=== PATIENT | female | born 1935 | race Caucasian/White ===

== ENCOUNTER 2019-05-06 19:26 | Observation (INO) ==
--- NOTE | 2019-05-06 19:53 | Diag Imaging Result Doc PS360 ---
EXAM: CT HEAD/C-SPINE W/O CONTRAST INDICATION: fall TECHNIQUE: This exam was performed using automated exposure control, adjustment of mA or kV according to patient size, and/or use of iterative reconstruction technique. COMPARISON: 10/01/2018 FINDINGS: Head: There is no definite acute infarct given the limited sensitivity of CT versus MRI. There is no discrete intracranial mass, mass effect, or intracranial hemorrhage. The surrounding soft tissues are essentially unremarkable. The calvaria is intact. C-spine: There is multilevel fairly advanced degenerative disc disease and facet arthropathy, stable. Otherwise, there is no discrete fracture, acute subluxation, or intrinsic osseous lesion. The surrounding soft tissues are essentially unremarkable. IMPRESSION: 1.No evidence of acute intracranial pathology. 2.Multilevel degenerative arthropathy that is stable. No evidence of fracture or other definite acute C-spine injury. Electronically signed by Fidencio Dhillon 05/06/2019 7:51 PM
--- NOTE | 2019-05-06 19:59 | PROVIDER DOCUMENTATION ---
HPI-Head Injury - General Chief Complaint: Fall Stated Complaint: FALL Time Seen by Provider: 05/06/19 19:28 Source: patient Allergies/Adverse Reactions: Patient Allergies Allergy/AdvReac Type Severity Reaction Status Date / Time No Known Allergies Allergy Verified 05/06/19 19:31 Home Medications: Home Medication List Medication Instructions Recorded Confirmed Last Taken Type Cetirizine HCl [Zyrtec] 10 mg PO DAILY 05/06/19 05/06/19 Unknown History - History of Present Illness-Head Injury Nature of Presenting Problem: 84 yof with PMH SAH presents with c/o getting dizzy after bending over out of a chair and falling backwards and hitting her head. She reports she had LOC after the fall. Dizzy before the fall. She denies hx of vertigo. Denies current dizziness Head Injury Location: reports: occipital Other injuries associated with incident:: reports: head Quality of Pain: reports: aching Severity: reports: mild Onset/Duration: reports: just prior to arrival Timing: reports: still present Method of Injury: reports: fell Any recent trauma/injury?: reports: minor Loss of Consciousness: brief (seconds) Modifying Factors: improves with: nothing Injury Associated Symptoms: reports: dizziness Locality of Occurance: Work Similar Symptoms Previously?: No Recently seen or treated by another doctor?: No Review of Systems - Adult - REVIEW OF SYSTEMS - ADULT Constitutional: reports: no symptoms reported. denies: see HPI, chills, fever, fatique, night sweats, weight gain, weight loss, other Eyes: reports: no symptoms reported. denies: see HPI, discharge, dry eyes, decreased vision, blurred vision, double vision, eye pain, redness, other Ears, Nose, Mouth & Throat: reports: no symptoms reported. denies: see HPI, ear discharge, ear pain, hearing loss, tinnitus, epistaxis, sinus problem, nose pain, loose teeth, mouth/dental pain, mouth swelling, hoarseness, throat pain, throat swelling, other Cardiovascular: reports: no symptoms reported. denies: see HPI, chest pain, edema, heart murmur, irregular heart rate, orthopnea, palpitations, poor circulation, PND, syncope, other Respiratory: reports: no symptoms reported. denies: see HPI, chronic cough, cough, dyspnea on exertion, excessive sputum production, hemoptysis, pleurisy, s hortness of breath, wheezing, other Gastrointestinal: reports: no symptoms reported. denies: see HPI, abdominal pain, hematemesis, constipation, diarrhea, difficulty swallowing, frequent heartburn, nausea, poor appetite, rectal bleeding, vomiting, other Genitourinary: reports: no symptoms reported. denies: see HPI, dysuria, discharge, frequency, flank pain, frequent UTI's, hematuria, hesitency, incontinence, urinary retention, urgency, other Musculoskeletal: reports: no symptoms reported. denies: see HPI, bone pain, back pain, frequent leg cramps, joint pain, joint swelling, muscle aches, muscle weakness, neck pain, other Integumentary: reports: no symptoms reported. denies: see HPI, hives, hair loss, itching, mole changes, nail changes, rash, skin sores/ulcer, skin thickening, other Neurological: reports: see HPI, dizziness/vertigo (prior to fall), headache/migraines. denies: loss of balance, numbness, slurred speech, syncope Psychiatric: reports: no symptoms reported. denies: see HPI, anxiety, anti- depressant use, alcohol/drug dependence, depression, emotional problems, insom андрей, panic attacks, suicidal thoughts, other Endocrine: reports: no symptoms reported. denies: see HPI, change in skin pigment, excessive sweating, goiter, cold intolerance, heat intolerance, increased hunger, increased thirst, polyuria, other Hematologic/Lymphatic: reports: no symptoms reported. denies: see HPI, blood clots, easy bruising, low blood count, lymphedema, prolonged bleeding, swollen lymph nodes, transfusions, other Allergic/Immunologic: reports: no symptoms reported. denies: see HPI, allergic reactions, allergic rhinitis, asthma, eczema, food allergy, frequent infections, hay fever, hives, positive PPD, urticaria, other Past History - Adult - PAST MEDICAL HISTORY-ADULT Review of Records: reports: Nursing Assessment Review, Social history reviewed & non-contributory. Major Childhood Illnesses: reports: denies history Cardiovascular: reports: denies history Respiratory: reports: denies history Gastrointestinal: reports: GERD Obstetrical/Gynecological: reports: denies history Genitourinary: reports: denies history Musculoskeletal: reports: denies history Neurological: reports: denies history Endocrine/Immune: reports: denies history Other Conditions: reports: denies history - PRIOR SURGERIES/PROCEDURES Surgical/Procedure History: reports: none - IMMUNIZATION STATUS Childhood Immunizations: See Nurse Assessment Flu Vaccine: See Nurse Assessment - FAMILY HISTORY Family History: reviewed, not pertinent Physical Exam- Neurological - Physical Exam-Neuro Initial Vital Signs Reviewed: Yes General Appearance: appears well, alert, no apparent distress Eye Exam: bilateral eye: normal inspection, PERRL, EOMI HENMT: moist mucous membranes, normal ENT inspection Head Injury: other (hematoma R occipital) Neck: non-tender, full range of motion, supple Respiratory: chest non-tender, lungs clear, normal breath sounds, no pleuratic chest pain, no respiratory distress, no accessory muscle use Cardiovascular: normal peripheral pulses, regular rate, rhythm, no edema, no gallop, no JVD, no murmur Abdominal Exam: normal bowel sounds, non tender, soft, no organomegaly, no pulsatile mass Lymphatic: no adenopathy Peripheral Pulses: radial (R): 2+, radial (L): 2+ Extremity: normal range of motion, non-tender, normal gait, normal inspection, no pedal edema, 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 negative: abnormal speech, facial droop, facial paresthesias, gaze palsy, tongue deviation to R, tongue deviation to L Coordination/Gait: normal finger to nose, normal gait Motor/Sensory: no motor deficit, no sensory deficit, no pronator drift. neg ative: sensory deficit Neurologic: grossly normal. negative: aphasia, facial droop, focal weakness Integumentary: normal color, normal turgor, warm/dry Psych/Mental Status: normal mood/affect, oriented x 3 - Glascow Coma Scale Best Eye Response: (4) open spontaneously Best Verbal Response: (5) oriented Best Motor Response: (6) obeys commands Progress - PLAN OF CARE/RESULTS Progress/Plan/Lab Results: Vital Signs - 8 hr 05/06/19 19:28 05/06/19 20:32 Temperature 97.6 F Pulse Rate 61 Pulse Rate [Sitting] 57 L Pulse Rate [Standing] 63 Pulse Rate [Supine] 60 Respiratory Rate 20 Blood Pressure 171/69 Blood Pressure [Sitting] 155/75 Blood Pressure [Standing] 139/77 Blood Pressure [Supine] 145/73 O2 Sat by Pulse Oximetry 97 Laboratory Results - last 24 hr 03/05/06/19 05/06/19 20:11 20:11 20:11 WBC 4.64 L RBC 4.20 Hgb 12.4 Hct 38.4 MCV 91.4 MCH 29.5 MCHC 32.3 L RDW Std Deviation 13.3 Plt Count 171 MPV 10.8 H Immature Gran % (Auto) 0.2 Neut % (Auto) 40.5 L Lymph % (Auto) 34.7 Taylor % (Auto) 23.3 H Eos % (Auto) 1.1 Baso % (Auto) 0.2 Immature Gran # (Auto) 0.01 Neut # (Auto) 1.88 Lymph # (Auto) 1.61 Taylor # (Auto) 1.08 H Eos # (Auto) 0.05 Baso # (Auto) 0.01 Sodium 142 Potassium 4.0 Chloride 104 Carbon Dioxide 26 Anion Gap 12 BUN 18 Creatinine 0.7 Estimated GFR/1.73 m2 > 60 BUN/Creatinine Ratio 26 Glucose 138 H Calculated Osmolality 287 Calcium 10.1 Total Bilirubin 0.30 AST 18 ALT 14 Alkaline Phosphatase 45 Total Protein 7.0 Albumin 4.4 Globulin 3.0 Albumin/Globulin Ratio 2.0 Urine Source CLEAN CATCH Urine Color YELLOW Urine Turbidity HAZY Urine pH 7.0 Ur Specific [place] 1.019 Urine Protein NEGATIVE Ur Glucose (Stick) NEGATIVE Ur Ketones (Stick) NEGATIVE Urine Blood NEGATIVE Urine Nitrite NEGATIVE Urine Bilirubin NEGATIVE Urobilinogen Dipstick NORMAL Urine Leukocytes SMALL A Urine WBC (Auto) <10 Urine RBC (Auto) <10 U Epithel Cells (Auto) <10 Urine Bacteria (Auto) NEGATIVE Orders Category Date Time Status ED: Orthostatic Vital Signs (E DIRECTED Care 05/06/19 19:[address] HEAD/C-SPINE W/O CONTRAST [CT] Stat Exams 05/06/19 19:28 Completed CBC WITH ELECTRONIC DIFF [HEME] Stat Lab 05/06/19 20:11 Completed COMPREHENSIVE METABOLIC PANEL [CHEM] Stat Lab 05/06/19 20:11 Completed TROPONIN T HIGH SENSITIVITY Stat Lab 05/06/19 20:11 Received UA NIMS W/REFLEX CULT [URINALYSIS] Stat Lab 05/06/19 20:11 Completed URINE CULTURE [RM] Routine Lab 05/06/19 21:16 Ordered EKG [EKG] Stat Ther 05/06/19 21:02 Active due to the fact that the patient has had multiple syncopal episodes at work recently and a fall with + LOC today it is recommened that she stay for obs ervation, Dr. Pace agrees to take the patient. Will place on tele. there are no home meds, no sign of volume depletion Result Diagrams: 05/06/19 20:11 05/06/19 20:11 - EKG 1 Time of EKG reading by physician:: 21:08 EKG Read and Signed by:: Mario Felipe EKG Interpretation (*Must complete 3 of following elements*): Abnormal Rate: 58 Rhythm: SB [place]: normal QRS: RBB ND Interval: normal ST Wave: normal Prior EKG Comparison: changes noted (SB now) - CT/MRI 1 CT Study: Cervical Spine, Head Impression: See EMR Report (EXAM: CT HEAD/C-SPINE W/O CONTRAST INDICATION: fall TECHNIQUE: This exam was performed using automated exposure control, adjustment of mA or kV according to patient size, and/or use of iterative reconstruction technique. COMPARISON: 10/01/2018 FINDINGS: Head: There is no definite acute infarct given the limited sensitivity of CT versus MRI. There is no discrete intracranial mass, mass effect, or intracranial hemorrhage. The surrounding soft tissues are essentially unremarkable. The calvaria is intact. C-spine: There is multilevel fairly advanced degenerative disc disease and facet arthropathy, stable. Otherwise, there is no discrete fracture, acute subluxation, or intrinsic osseous lesion. The surrounding soft tissues are essentially unremarkable. IMPRESSION: 1.No evidence of acute intracranial pathology. 2.Multilevel degenerative arthropathy that is stable. No evidence of fracture or other definite acute C-spine injury. Electronically signed by Fidencio Dhillon 05/06/2019 7:51 PM 05/06/191950 Interpreting Physician: Fidencio Dhillon MD Dictated Date/Time: 05/06/191949 cc: Amy Angel; Jose Eduardo Alvarado DO) - CONSULTS/PCP/HOSPITALIST Notification #1 *Consult/PCP/Hospitalist*: Dr. Hardin Time Discussed: 21:36 Consult Disposition: Admit (obs) Departure - Departure Date of Disposition Decision: 05/06/19 Time of Disposition Decision: 21:36 DIAGNOSIS: Dizziness, Minor head injury with loss of consciousness Disposition: ADMITTED INPATIENT 09 Certified Medical Emergency: Emergent Condition: Stable Additional Instructions: ED Follow Up Instructions: You have been treated by a care provider in the Emergency Department. These instructions are being provided to you so you can have an understanding of how to care for yourself upon discharge. Upon discharge from the Emergency Department, you are responsible for making arrangements for follow-up care by a physician of your choice. Take all prescribed medications as directed. Return to the Emergency Department immediately for any new or worsening sym ptoms. You may call the Physician Referral phone number at [phone] to obtain a list of Physicians who are taking new patients. Referrals and Follow-Ups: Jose Eduardo Alvarado, [Primary Care Provider] - Discharge Education: Fall Prevention in the Home, Adult, [id number] - Critical Care Note This patient required my direct & personal management of CC.: No Attestation - Physician/ MYKEL Attestation Patient care was provided by Advanced Practice Provider:: Yes Advanced Practice Provider:: Amy Angel Advanced Practice Provider documentation review:: The Mid-level provider doc umentation, treatment plan and medical decision making was reviewed by the physician who agrees with all treatment and medical decision making by the MLP. The physician spent face to face time with patient:: No Advanced Practice Provider documentation review:: Supervising physician onsite and consulted in the evaluation and care of this patient. The physician did not have a face to face encounter with the patient.
[2019-05-06 20:23] LABS: URINE SOURCE CLEAN CATCH
[2019-05-06 20:24] LABS: BILIRUBIN URINE NEGATIVE (NEGATIVE); BLOOD URINE NEGATIVE (NEGATIVE); COLOR YELLOW; GLUCOSE URINE NEGATIVE (NEGATIVE); KETONE URINE NEGATIVE (NEGATIVE); LEUKOCYTES URINE SMALL (NEGATIVE); NITRITE URINE NEGATIVE (NEGATIVE); PROTEIN URINE NEGATIVE (NEGATIVE); SP GRAVITY URINE 1.019; TURBIDITY URINE HAZY (CLEAR); UROBILINOGEN URINE NORMAL (NORMAL)
[2019-05-06 20:25] LABS: UR EPITHELIAL CELLS <10 /HPF (<10); URINE BACTERIA NEGATIVE /HPF; URINE RBC <10 /HPF (<10); URINE WBC <10 /HPF (<10)
[2019-05-06 20:49] LABS: BASO# 0.01 X1000 (0.0-0.2); BASO% 0.2 % (0.0-0.8); EOS# 0.05 X1000 (0.0-0.7); EOS% 1.1 % (0.0-10.0); HEMATOCRIT 38.4 % (37.0-47.0); HEMOGLOBIN 12.4 g/dL (12.0-16.0); IMM GRAN# 0.01 X1000 (0.0-0.04); IMM GRAN% 0.2 % (0.0-0.5); LYMPH# 1.61 X1000 (1.2-3.4); LYMPH% 34.7 % (20.5-51.1); MCH 29.5 PG (27-31); MCHC 32.3 g/dL (33-37); MCV 91.4 FL (81-99); MONO# 1.08 X1000 (0.11-0.59); MONO% 23.3 % (1.7-9.3); MPV 10.8 FL (7.4-10.4); NEUT# 1.88 X1000 (1.4-6.5); NEUT% 40.5 % (42.2-75.2); PLT 171 X1000 (130-400); RDW 13.3 % (11.5-14.5); WBC 4.64 X1000 (4.8-10.8)
[2019-05-06 20:57] LABS: AGAP 12; ALBUMIN 4.4 g/dL (3.5-5.0); ALKALINE PHOSPHATASE 45 U/L (32-104); BUN 18 mg/dL (8-22); CALCIUM 10.1 mg/dL (8.8-10.2); CHLORIDE 104 mmol/L (98-107); COSMO 287; CREATININE 0.7 mg/dL (0.5-0.9); ESTIMATED GFR > 60; GLUCOSE 138 mg/dL (70-104); GOT 18 U/L (10-30); GPT 14 U/L (10-36); SODIUM 142 mmol/L (136-145); TCO2 26 mmol/L (25-35)
--- NOTE | 2019-05-06 21:36 | EKG Report ---
Test Performed on : 05/06/2019 9:07:26 PM Test Reason : dizziness Blood Pressure : / mmHG Vent. Rate : 058 BPM Atrial Rate : 058 BPM P-R Int : 190 ms QRS Dur : 126 ms QT Int : 448 ms P-R-T Axes : 071 081 059 degrees QTc Int : 439 ms Sinus bradycardia. Right bundle branch block Abnormal ECG When compared with ECG of 01-OCT-2018 22:22, No significant change was found Unconfirmed Result
[2019-05-06] MEDS ORDERED: ZOFRAN ODT PO PRN (21:38)
[2019-05-06] MEDS ORDERED: TYLENOL PO PRN (21:38)
[2019-05-07] MEDS ORDERED: ZYRTEC PO SCH (09:00)
[2019-05-07] MEDS ORDERED: VITAMIN D PO SCH (09:00)
[2019-05-07] MEDS ORDERED: CALTRATE 600 PO SCH (09:00)
[2019-05-07] MEDS ORDERED: THERA M PLUS PO SCH (09:00)
--- NOTE | 2019-05-07 10:03 | Diag Imaging Result Doc PS360 ---
EXAM: MRI BRAIN W/O CONTRAST INDICATION: dizzy/syncope/fall COMPARISON: None. FINDINGS: There is no evidence of acute infarct. There is patchy T2/FLAIR hyperintensity in the periventricular and subcortical white matter suggesting moderate microangiopathy. There is no discrete intracranial mass, mass effect, or intracranial hemorrhage. The cerebellar pontine angles are unremarkable. The 7th and 8th cranial nerves are grossly unremarkable bilaterally. The membranous labyrinths appear normal bilaterally. The internal auditory canals are unremarkable. The mastoid air cells are unremarkable. The surrounding soft tissues and bony structures are essentially unremarkable. IMPRESSION: Patchy T2/FLAIR hyperintensity in the periventricular and subcortical white matter suggesting moderate microangiopathy. Otherwise, unremarkable MRI of the brain and skull base. Electronically signed by Fidencio Dhillon 05/07/2019 10:00 AM
[2019-05-07 14:11] VITALS: BP 143/58
--- NOTE | 2019-05-08 03:21 | DISCHARGE SUMMARY ---
ADMISSION DATE: 05/07/2019 DISCHARGE DATE: 05/07/2019 DISCHARGE DIAGNOSES: 1. Minor head injury with loss of consciousness. 2. History of subarachnoid hemorrhage. 3. Chronic reflux. 4. Allergies. 5. Labile hypertension. Patient has no previous history of hypertension, certainly will need to follow up with this at home. CONSULTATIONS: None. PROCEDURES: MRI and CT. BRIEF HOSPITAL COURSE: Patient was admitted to the hospital secondary to falling out of her chair, hitting the back of her head and having a previous that loss of consciousness. Thankfully, CT and MRI both were normal. She does have a history of separate hemorrhage. On discharge, she is awake, alert, oriented. She is in no distress. She is able to ambulate without any difficulty. DISPOSITION: Patient will be discharged home. Instructed to follow up with her primary care should symptoms worsen or return. cc: Malcolm Yuan MD
--- NOTE | 2019-05-08 04:21 | HISTORY AND PHYSICAL ---
CHIEF COMPLAINT: Fall. HISTORY OF PRESENT ILLNESS: The patient is an 84-year-old female with past medical history of subarachnoid bleeding that has resolved. She presented to the ER after having a syncopal episode at home. She was sitting in a chair, bent over and got dizzy, fell, hit her head. Does note that she has loss of consciousness after the fall. She was dizzy prior to falling. ALLERGIES: No known drug allergies. MEDICATIONS: Zyrtec. PAST MEDICAL HISTORY: Subarachnoid hemorrhage in October, chronic reflux. FAMILY HISTORY: Noncontributory. REVIEW OF SYSTEMS: The patient does have a headache. However, she denies any fevers, chills, cough, congestion. Denies chest pain, palpitations. Denies dysuria, urinary frequency, urgency, hesitancy, polyuria or polydipsia. Denies skin rashes, weight loss or weight gain. Denies any focalized numbness, tingling, or weakness. Denies any current confusion. FAMILY HISTORY: Noncontributory. PHYSICAL EXAMINATION: VITAL SIGNS: Reviewed. Temperature 97 degrees, pulse 61, respiratory 20, BP 117/69 sitting, 145 supine. GENERAL: The patient is awake, alert, oriented, pleasant. HEENT: Normocephalic. She does have bruising with hematoma on her right occipital region. NECK: Supple. CARDIOVASCULAR: Regular rate. CHEST: Clear and nonlabored. ABDOMEN: Soft, nondistended, nontender. EXTREMITIES: Moves all extremities. NEUROLOGIC: No changes. LABORATORIES: CBC, CMP normal. CT head normal. Urine is clear. ASSESSMENT: Minor head injury with loss of consciousness. PLAN: We are going to continue patient in the hospital with observation. Check an MRI, allow her to get up and ambulate and we will follow. cc: Malcolm Yuan MD
== END 2019-05-07 16:31 | disposition home or self-care (01) ==
LOC: P.ED 19:26 → P.MEDSURG 19:26
PROVIDERS: ATTEND Family Medicine